=== PATIENT | female | born 1975 | race Asian ===

== ENCOUNTER 2016-05-06 00:59 | Emergency (ER) | payer SELFPAY ==
[~2016-05-06] VITALS: Ht 154.9 cm; Wt 45.4 kg
[2016-05-06 01:00] VITALS: BP 128/78
--- NOTE | 2016-05-06 01:20 | Emergency Room Report ---
History of Present Illness General Chief Complaint: Alcohol Intoxication Source: Patient Present Illness HPI Patient was brought here after drinking alcohol by EMS. Apparently passers-by called EMS. She denied any complaints to paramedics. Accucheck = 120 field. Patient denies CP, SOB, NVD, seizures, trauma, rashes, dysuria, depression. She is reluctant to speak to Telugu speaking RN. Allergies: Coded Allergies: No Known Allergies (Unverified , 05/06/16) Patient History Past Medical History: see triage record Social History: Reports: alcohol use Social History Narrative Last Menstrual Period: UNKNOWN Reviewed Nursing Documentation: PMH: Agreed, PSxH: Agreed Nursing Documentation-PMH Past Medical History: No Stated History Review of Systems All Other Systems: negative except mentioned in HPI Physical Exam Vital Signs Date Time Temp Pulse Resp B/P Pulse Ox O2 Delivery O2 Flow Rate FiO2 05/06/16 00:53 98.1 90 18 128/78 98 Room Air Sp02 EP Interpretation: reviewed, normal General Appearance: well appearing, no apparent distress, other - alcohol on breath Head: normocephalic Eyes: bilateral eye PERRL, bilateral eye Scleral Injection ENT: moist mucus membranes Neck: supple Respiratory: lungs clear, normal breath sounds Cardiovascular #1: regular rate, rhythm Cardiovascular #2: 2+ radial (R) Gastrointestinal: normal inspection, normal bowel sounds, non tender, non- distended, scaphoid Musculoskeletal: back normal, gait/station normal, normal range of motion Neurologic: alert, other - slightly unsteady gait, but ambulatory without assistance, oriented - OX2 - not answering questions Psychiatric: other - paranoid and poorly cooperative Skin: normal inspection, normal color, no rash Medical Decision Making Diagnostic Impression: Primary Impression: Acute alcoholic intoxication Qualified Codes: F10.129 - Alcohol abuse with intoxication, unspecified Additional Impression: AMA ER Course Patient brought in with ALOC and alcohol ingestion. DDx; alcohol intoxication, other drug ingestion, electrolyte abnormality. No evidence of head trauma and denies SANDY or other pain. She is somewhat paranoid and it is difficult to determine whther this is a result of EtOH or underlying psychopathy. Emergent evaluation with labs, EKG. Observation indicated as we try to contact . Patient refusing evaluation. here. He will take patient home. Upset EMS called. He has alcohol on his breath and does not answer questions, but seems to listen to risks of refusal. AMA form signed and risk of severe illness and explained. He does not believe these risks. Patient ambulatory with . Last Vital Signs Date Time Temp Pulse Resp B/P Pulse Ox O2 Delivery O2 Flow Rate FiO2 05/06/16 01:50 98.1 90 18 128/78 98 Room Air Status: improved Disposition: AGAINST MEDICAL ADVICE Condition: Stable Antonio Landry M.D. May 06, 2016 01:20
[2016-05-06 01:50] VITALS: BP 128/78
== END 2016-05-06 01:50 | disposition left against medical advice (07) ==
LOC: EDBD 00:59 → EMR 01:20
DX: F10.129 Alcohol abuse with intoxication, unspecified (principal)
CPT/HCPCS: 99284